=== PATIENT | male | born 1995 | race African-American/Black ===

== ENCOUNTER 2019-01-31 15:49 | Emergency (ER) | payer SELFPAY ==
[2019-01-31] MEDS ORDERED: Ciproflox/Dexameth OTIC.SUSP* 7.5 ML BTL LEFT EAR ONE (18:37)
--- NOTE | 2019-01-31 18:37 | ED ---
Throat Pain/Nasal Congestion - HPI Summary HPI Summary: 23-year-old male presents with left ear pain for the past couple days. He admits to decrease in hearing. Denies getting any water in his ear. No history of ear infections. Does admit to a headache. He admits to slight sinus congestion. No sore throat. No fevers. Has no medical conditions. - History of Current Complaint Chief Complaint: EDEarPain Time Seen by Provider: 01/31/19 18:03 - Allergies/Home Medications Allergies/Adverse Reactions: Allergies Allergy/AdvReac Type Severity Reaction Status Date / Time bismuth subsalicylate Allergy Vomiting Verified 01/31/19 16:09 [From Pepto-Bismol] Home Medications: Home Medications NK [No Home Medications Reported] 01/31/19 [History Confirmed 01/31/19] PMH/Surg Hx/FS Hx/Imm Hx Endocrine/Hematology History: Denies: Hx Anticoagulant Therapy Respiratory History: Denies: Hx Asthma Infectious Disease History: No Infectious Disease History: Denies: Traveled Outside the [place] in Last 30 Days - Family History Known Family History: Positive: Non-Contributory - Social History Alcohol Use: None Substance Use Type: Reports: None Smoking Status (MU): Current Every Day Smoker Review of Systems Negative: Fever Positive: Ear Ache Negative: Chest Pain Negative: Shortness Of Breath All Other Systems Reviewed And Are Negative: Yes Physical Exam Triage Information Reviewed: Yes Vital Signs On Initial Exam: Initial Vitals Temp Pulse Resp BP Pulse Ox 98 F 71 16 132/74 97 01/31/19 16:06 01/31/19 16:06 01/31/19 16:06 01/31/19 16:06 01/31/19 16:06 Vital Signs Reviewed: Yes Appearance: Positive: Well-Appearing Skin: Positive: Warm, Dry Head/Face: Positive: Normal Head/Face Inspection Eyes: Positive: Normal, EOMI, CAROLA, Conjunctiva Clear ENT: Positive: Pharynx normal, TMs normal, Other - left ear canal edematous and erythematous Respiratory/Lung Sounds: Positive: Clear to Auscultation, Breath Sounds Present Cardiovascular: Positive: Normal, RRR Musculoskeletal: Positive: Normal Neurological: Positive: Normal Psychiatric: Positive: Normal Diagnostics - Vital Signs Vital Signs Temp Pulse Resp BP Pulse Ox 01/31/19 16:06 98 F 71 16 132/74 97 - Laboratory Lab Statement: Any lab studies that have been ordered have been reviewed, and results considered in the medical decision making process. EENT Course/Dx - Course Course Of Treatment: 23-year-old male presents with left ear pain for the past couple days. He admits to decrease in hearing. Denies getting any water in his ear. No history of ear infections. Does admit to a headache. He admits to slight sinus congestion. No sore throat. No fevers. Has no medical conditions. On exam left ear canal is edematous and erythematous. We will treat as an otitis externa with Ciprodex. Told to est care with primary. Patient understands agrees plan. - Differential Diagnoses Differential Diagnoses: Otitis Externa, Sinusitis - Diagnoses Provider Diagnoses: Otitis externa Discharge ED - Sign-Out/Discharge Documenting (check all that apply): Patient Departure Patient Received Moderate/Deep Sedation with Procedure: No - Discharge Plan Condition: Good Disposition: HOME Patient Education Materials: Otitis Externa (ED) Forms: *Work Release Referrals: [facility] [Outside] Additional Instructions: Use 4 drops twice a day for 7 days Take Tylenol or ibuprofen for pain every 6 hours as needed Avoid swimming until done with antibiotic Follow up with primary in a week to make sure resolving Return to ED if develop any new or worsening symptoms - Billing Disposition and Condition Condition: GOOD Disposition: Home
[2019-01-31 18:55] VITALS: BP 103/64
== END 2019-01-31 18:52 | disposition home or self-care (01) ==
LOC: ED 15:49
DX: H60.92 Unspecified otitis externa, left ear (principal); F17.200 Nicotine dependence, unspecified, uncomplicated; Z88.8 Allergy status to other drugs, medicaments and biological substances
CPT/HCPCS: 99282; A9270-GY